=== PATIENT | male | born 1945 | race Caucasian/White ===

== ENCOUNTER → 2016-12-11 | Outpatient (CLI) | payer MEDICARE, OTHER ==
[~2016-12-11] MED LIST: ADVAIR DISKUS 11 DSK IH; CHEWABLE ASPIRI81 MG PO; FLOMAX0.4 MG PO; FLONASE 50 MCG16 GM; FUROSEMIDE 20MG20 MG FT; IMURAN50 M1 PO; IPRATROPIUM BRO30 ML NS; LEVAQUIN 750 M750 MG PO; LIPITOR40 M1 PO; MONTELUKAST SOD10 MG PO; NIACIN500 M2 PO; OMEPRAZOLE20 MG PO; PEPCID20 MG OR; PREDNISONE 20MG20 MG PO
[2016-12-11 11:32] LABS: BUN 27 mg/dL (7-18)
[2016-12-11 11:37] LABS: GFR (ESTIMATED) 84 ML/MIN (>60)
== END ==
LOC: LAB 09:56
PROVIDERS: Internal Medicine Adolescent Medicine
DX: E78.5 Hyperlipidemia, unspecified (principal); R73.9 Hyperglycemia, unspecified